=== PATIENT | male | born 1990 | race African-American/Black ===

== ENCOUNTER 2016-06-08 08:35 | Emergency (ER) | payer MEDICAID ==
[~2016-06-08] VITALS: Ht 190.5 cm; Wt 70.3 kg
[~2016-06-08 08:35] MED LIST: LISI-275 PO
[2016-06-08 09:28] VITALS: BP 119/77
== END 2016-06-08 09:51 | disposition home or self-care (01) ==
LOC: ER 08:37
DX: J20.9 Acute bronchitis, unspecified (principal); J02.9 Acute pharyngitis, unspecified; F17.210 Nicotine dependence, cigarettes, uncomplicated; F12.10 Cannabis abuse, uncomplicated

== ENCOUNTER 2016-06-23 06:07 | Emergency (ER) | payer MEDICAID ==
[~2016-06-23] VITALS: Ht 188 cm; Wt 69.9 kg
[2016-06-23 06:25] VITALS: BP 123/84
== END 2016-06-23 07:23 | disposition home or self-care (01) ==
LOC: ER 06:09
DX: J20.9 Acute bronchitis, unspecified (principal); F17.210 Nicotine dependence, cigarettes, uncomplicated; F12.10 Cannabis abuse, uncomplicated

== ENCOUNTER 2016-08-23 09:25 | Emergency (ER) | payer MEDICAID ==
[~2016-08-23] VITALS: Ht 190.5 cm; Wt 65.8 kg
[2016-08-23 09:48] VITALS: BP 127/79
== END 2016-08-23 10:31 | disposition home or self-care (01) ==
LOC: ER 09:28
DX: J20.9 Acute bronchitis, unspecified (principal); F17.210 Nicotine dependence, cigarettes, uncomplicated; F12.10 Cannabis abuse, uncomplicated

== ENCOUNTER 2016-09-19 07:09 | Emergency (ER) | payer MEDICAID ==
[~2016-09-19] VITALS: Ht 188 cm; Wt 70.8 kg
[2016-09-19 07:37] VITALS: BP 117/62
== END 2016-09-19 09:30 | disposition left against medical advice (07) ==
LOC: ER 07:16
DX: R10.31 Right lower quadrant pain (principal); R19.7 Diarrhea, unspecified; R11.2 Nausea with vomiting, unspecified; Z53.21 Procedure and treatment not carried out due to patient leaving prior to being seen by health care provider